=== PATIENT | female | born 1980 | race Caucasian/White ===

== ENCOUNTER 2019-07-29 13:03 | Emergency (ER) | payer SELFPAY ==
[2019-07-29 13:27] VITALS: BP 111/79; PULSE 80; RESP 16; TEMP 36.9; O2SAT 100
--- NOTE | 2019-07-29 13:50 | ED.GENADULT ---
HPI - General Adult General Chief complaint: Urogenital-Female Stated complaint: poss UTI Time Seen by Provider: 07/29/19 14:04 Source: patient Mode of arrival: ambulatory Limitations: no limitations History of Present Illness HPI narrative: 39-year-old female patient presents to the [facility] with complaints of vaginal irritation for the past 3 days. Patient states that she noticed that Friday night she had a little discomfort during intercourse but thought that was because she has been having more intercourse recently. Patient then noticed on Friday that she was having on some yellow vaginal discharge but no odor. Patient states that she has little vaginal irritation and slight itchiness. Patient states she has not had any pain with urination. Denies any fevers, abdominal pain, nausea, vomiting or diarrhea. Patient states is been about 7 years or more since her last Pap smear. Patient denies any stating that she has had her tubes . Patient denies breast-feeding at this time. Patient states she has never had vaginal issues like this before and is concerned and somewhat tearful. Patient denies any concerns for STDs stating that she has been in monogamous relationship for over 15 years. Patient states that her last. Started last Friday and ended Friday. Patient states she did then did participate in intercourse with her monogamous partner on Friday night and started having symptoms of this on Friday. Related Data Home Medications Medication Instructions Recorded Confirmed Otc Hair, Skin, And Nails 07/29/19 Allergies Allergy/AdvReac Type Severity Reaction Status Date / Time No Known Allergies Allergy Unverified 05/30/15 18:30 Review of Systems Review of Systems: Narrative: CONSTITUTIONAL: Denies fever, chills, or sweats. EYES: Denies visual changes, redness, or discharge. ENT: Denies rhinorrhea, congestion, sore throat, or otalgia. CARDIOVASCULAR: Denies chest pain, palpitations, or edema. RESPIRATORY: Denies cough or dyspnea. GASTROINTESTINAL: Denies abdominal pain, nausea, vomiting, or diarrhea. GENITOURINARY: Denies dysuria or hematuria. Positive vaginal irritation x3 days SKIN: Denies rash or itching. MUSCULOSKELETAL: Denies back pain, joint pain, or myalgia. NEUROLOGIC: Denies headache, numbness, or weakness. PSYCHIATRIC: Denies anxiety or depression. [facility] Family History Family History Mother Family history of diabetes mellitus in first degree relative Family history of malignant neoplasm of cervix Social History Social History Second hand tobacco smoke exposure: No Alcohol intake: never Comments At the time of my signature I agree with nursing past medical history, surgical, social, and family history. There is no relevant family history pertinent to the presenting complaint. Exam Narrative: Exam Narrative: GENERAL: Well-appearing, well-nourished, and in no acute distress. HEAD: Normocephalic, atraumatic. EYES: PERRLA and EOMI. ENT: Nares clear, no rhinorrhea or epistaxis. Mucous membranes moist. NECK: Supple. No lymphadenopathy CHEST: Clear to auscultation. No respiratory distress. HEART: Regular rate and rhythm. No murmur heard. Normal peripheral pulses. ABDOMEN: Soft, nontender, nondistended, normal active bowel sounds. No CVA tenderness on percussion : Normal external female genitalia. OS is closed. No adnexal fullness or TTP. Patient does have some white milky stringy discharge noted during exam. No CVA tenderness to percussion. EXTREMITIES: Normal range of motion. No edema. SKIN: Warm, dry, no rash. NEURO: No focal deficits. Alert and oriented x3. Course Reevaluation(s) Reevaluation #1: Discussed with patient based on her exam as well as her subjective complaints I do think this is most likely a bacterial vaginosis. Discussed with her that this can occur someti
--- NOTE | 2019-07-29 13:52 | PC.NURSE ---
at 1335 did collect urine specimen. stated has no insurance. was tearful. requested to wait for provider exam for recommendations d/t self pay status.
== END 2019-07-29 14:37 | disposition home or self-care (01) ==
PROVIDERS: Emergency Provider Nurse Practitioner Family
DX: N76.0 Acute vaginitis (principal)
CPT/HCPCS: 81003; 99204; G0463

== ENCOUNTER 2019-08-19 18:23 | Emergency (ER) | payer SELFPAY ==
[2019-08-19 18:36] VITALS: BP 117/69; PULSE 94; RESP 16; TEMP 37.3; O2SAT 98
--- NOTE | 2019-08-19 19:08 | ED.GENADULT ---
HPI - General Adult General Chief complaint: Urogenital-Female Stated complaint: Possible UTI Time Seen by Provider: 08/19/19 19:08 Source: patient and RN notes reviewed Mode of arrival: ambulatory Limitations: no limitations History of Present Illness HPI narrative: 39-year-old female presents with vaginal irritation for the past 2-3 days. No treatment. Muna says for the last 3-5 months she has been having yellow discharge shortly after her menstrual cycle. No treatment at this time. Symptoms are similar to last month that was relieved with Falgyl and Diflucan. No significant pelvic pain. No dysuria. Denies fever or chills. No concerns for STDs. No history of STDs. No new partners, monogamous relationship for 15 years. Sexually active. Denies unprotected intercourse and multiple partners. Does douche. Exacerbating factors consist of menstrual cycle. Denies hematuria or vaginal bleeding. No flank pain. Remains active. Denies being , LMP 08/10/19-08/14/19. The patient reports she have not been diagnosed with COVID-19. The patient reports she is not waiting for the results of a COVID-19 lab test. The patient reports she do not have fever, chills, weakness, fatigue, or myalgia. The patient reports she do not have a new or worsening cough or shortness of breath. Denies chest pain. The patient reports she do not have any rhinorrhea, congestion, sore throat, nausea, vomiting, abdominal pain, and diarrhea. Tolerating po intake well. Denies concerns for COVID-19 or exposures been home with limited outdoor exposure except for essential household needs, work, and return home. At this time, patient is not suspected of having COVID-19. Some parts of this dictation were generated by voice recognition software and may contain typographical and/or grammatical inaccuracies. Related Data Allergies Allergy/AdvReac Type Severity Reaction Status Date / Time No Known Allergies Allergy Verified 08/19/19 18:44 Review of Systems Review of Systems: Narrative: CONSTITUTIONAL: Denies fever, chills, sweats. EYES: Denies visual changes, redness, discharge. ENT: Denies rhinorrhea, congestion, sore throat, otalgia. CARDIOVASCULAR: Denies chest pain, palpitations, edema. RESPIRATORY: Denies dyspnea, wheezing, cough. GASTROINTESTINAL: Denies abdominal pain, nausea, vomiting, diarrhea. GENITOURINARY: Denies hematuria, dysuria (burning, frequent, urgency). Complains of vaginal irritation, abnormal discharge. SKIN: Denies rash or itching. MUSCULOSKELETAL: Denies acute back pain, joint pain, or myalgia. NEUROLOGIC: Denies numbness or focal weakness. PSYCHIATRIC: Denies anxiety or depression. All systems reviewed & are unremarkable except as noted in HPI and below. [facility] Past Medical History Medical History (Updated 08/20/19 @ 00:00 by Karan Garcia) No significant past medical history Surgical History Surgical History (Updated 08/19/19 @ 19:19 by PONCE Blanco) History of dilation and curettage History of tubal ligation Family History Family History (Updated 08/19/19 @ 19:20 by PONCE Blanco) Mother , Liver failure-nonalcoholic Family history of diabetes mellitus in first degree relative Family history of malignant neoplasm of cervix Father Hypertension Cerebrovascular accident Social History Social History (Updated 08/19/19 @ 19:21 by PONCE Blanco) Smoking packs per day: 1 Smoking cigarettes per day: 20.0 Years smoked: 25 Smoking pack-years: 25.00 Smoking status: Current every day smoker Second hand tobacco smoke exposure: No Alcohol intake: current Substance use: current Substance use type: marijuana Living arrangements: with family Occupation/Education: occupation Gender identity (if verbalized by the patient): Female Comments At time of signature, agree with nurse past medical, surgical, social, and family history.? There is no relevan
== END 2019-08-19 19:31 | disposition home or self-care (01) ==
PROVIDERS: Emergency Provider Nurse Practitioner Family
DX: N76.0 Acute vaginitis (principal); F17.210 Nicotine dependence, cigarettes, uncomplicated
CPT/HCPCS: 99213; G0463